=== PATIENT | female | born 1970 | race Caucasian/White ===

== ENCOUNTER 2022-02-27 09:13 | Emergency (ER) | payer OTHER ==
[~2022-02-27] VITALS: Ht 162.5 cm; Wt 96.9 kg
[~2022-02-27 09:13] MED LIST: OMEP20TA33 PO
[2022-02-27] MEDS ORDERED: FAMOTIDINE 20 MG (PEPCID) TABLET PO STA (09:31)
--- NOTE | 2022-02-27 09:31 | ED Abdominal Pain ---
General Stated Complaint: RT SIDE PAIN, GALL BLADDER Source of Information: Patient Exam Limitations: No Limitations History of Present Illness Date Seen by Provider: February 27, 2022 Time Seen by Provider: 09:16 Initial Comments 51-year-old female with no pertinent past medical history coming in due to right upper quadrant pain. Been off and on for the past 4 days, worse in the past day. Associated with nonbloody nonbilious vomiting x4 in the past 4 days with 1 episode in the past 24 hours. A couple episodes of nonbloody diarrhea. She had a light salad yesterday was fine, couple hours later tried a sugar cookie and the pain got worse. Is worse when she lays back, and better in the " position". Has not tried any medicines for it as of yet. She had COVID in 2019, and that is when this started intermittently happening. She followed up with the surgeon and I will, had CT, ultrasound, and HIDA scan. She says in 2019 the HIDA scan was close to the point of them needing to take the gallbladder out. She is otherwise denying any other acute complaints. Allergies and Home Medications Allergies Coded Allergies: No Known Drug Allergies (Unverified , 02/27/22) Patient Home Medication List Home Medication List Reviewed: Yes Hydrocodone Bit/Acetaminophen (HYDROcodone/APAP 5 MG/325 MG TAB) 1 Tab Tab, 1 TAB PO Q6H Prescribed by: VANNA MANDUJANO on 02/27/22 1043 Ondansetron (Ondansetron Odt) 4 Mg Tab.rapdis, 4 MG PO Q6H PRN for NAUSEA/VOMITING-1ST LINE Prescribed by: VANNA MANDUJANO on 02/27/22 1042 Review of Systems Review of Systems Constitutional: No chills, No fever EENTM: No Blurred Vision Respiratory: Denies Cough, Denies Shortness of Air Cardiovascular: Denies Chest Pain Gastrointestinal: Abdomen Distended, Diarrhea, Nausea, Vomiting Genitourinary: No Symptoms Reported Musculoskeletal: no symptoms reported Skin: no symptoms reported Psychiatric/Neurological: No Symptoms Reported Endocrine: No Symptoms Reported Hematologic/Lymphatic: No Symptoms Reported All Other Systems Reviewed Negative Unless Noted: Yes Past Bgeovfg-Rooetk-Xhqlyq Hx Patient Social History Tobacco Use?: No Substance use?: No Alcohol Use?: Yes Alcohol Frequency: Once in a while Past Medical History Surgeries: Yes Hysterectomy Physical Exam Vital Signs Vital Signs - First Documented 02/27/22 09:18 Temp 36.2 Pulse 69 Resp 16 B/P (MAP) 161/75 (103) Capillary Refill : Height/Weight/BMI Height: '" Weight: lbs. oz. kg; BMI Method: General Appearance: WD/WN, no apparent distress HEENT: PERRL/EOMI, normal ENT inspection, pharynx normal Neck: non-tender, full range of motion, supple, normal inspection Respiratory: chest non-tender, lungs clear, normal breath sounds, no respiratory distress, no accessory muscle use Cardiovascular: regular rate, rhythm, no edema, no murmur Gastrointestinal: normal bowel sounds, soft; No distended, No guarding, No rebound; tenderness, other (positive Hensley) Extremities: normal range of motion, non-tender, normal inspection, no pedal edema, no calf tenderness, normal capillary refill Back: normal inspection, no CVA tenderness Neurologic/Psychiatric: no motor/sensory deficits, alert, normal mood/affect Skin: normal color, warm/dry Lymphatic: no adenopathy Progress/Results/Core Measures Results/Orders Lab Results Laboratory Tests Test 02/27/22 09:33 02/27/22 09:40 Range/Units White Blood Count 5.3 4.3-11.0 10^3/uL Red Blood Count 4.58 3.80-5.11 10^6/uL Hemoglobin 14.0 11.5-16.0 g/dL Hematocrit 40 35-52 % Mean Corpuscular Volume 87 80-99 fL Mean Corpuscular Hemoglobin 31 25-34 pg Mean Corpuscular Hemoglobin Concent 35 32-36 g/dL Red Cell Distribution Width 12.0 10.0-14.5 % Platelet Count 206 130-400 10^3/uL Mean Platelet Volume 11.3 9.0-12.2 fL Immature Granulocyte % (Auto) 0 % Neutrophils (%) (Auto) 53 42-75 % Lymphocytes (%) (Auto) 33 12-44 % Monocytes (%) (Auto) 9 0-12 % Eosinophils (%) (Auto) 5 0-10 % Basophils (%) (Auto) 1 0-10 % Neutrophils # (Auto) 2.8 1.8-7.8 10^3/uL Lymphocytes # (Auto) 1.8 1.0-4.0 10^3/uL Monocytes # (Auto) 0.5 0.0-1.0 10^3/uL Eosinophils # (Auto) 0.2 0.0-0.3 10^3/uL Basophils # (Auto) 0.1 0.0-0.1 10^3/uL Immature Granulocyte # (Auto) 0.0 0.0-0.1 10^3/uL Sodium Level 142 135-145 MMOL/L Potassium Level 3.7 3.6-5.0 MMOL/L Chloride Level 106 98-107 MMOL/L Carbon Dioxide Level 26 21-32 MMOL/L Anion Gap 10 5-14 MMOL/L Blood Urea Nitrogen 13 7-18 MG/DL Creatinine 0.67 0.60-1.30 MG/DL Estimat Glomerular Filtration Rate 106 BUN/Creatinine Ratio 19 Glucose Level 93 70-105 MG/DL Calcium Level 8.9 8.5-10.1 MG/DL Corrected Calcium 8.8 8.5-10.1 MG/DL Total Bilirubin 0.5 0.1-1.0 MG/DL Aspartate Amino Transf (AST/SGOT) 17 5-34 U/L Alanine Aminotransferase (ALT/SGPT) 21 0-55 U/L Alkaline Phosphatase 89 40-136 U/L Troponin I < 0.30 <0.30 NG/ML Total Protein 7.0 6.4-8.2 GM/DL Albumin 4.1 3.2-4.5 GM/DL Lipase 25 8-78 U/L Urine Color YELLOW Urine Clarity CLEAR Urine pH 7.5 5-9 Urine Specific Williamson 1.015 L 1.016-1.022 Urine Protein NEGATIVE NEGATIVE Urine Glucose (UA) NEGATIVE NEGATIVE Urine Ketones NEGATIVE NEGATIVE Urine Nitrite NEGATIVE NEGATIVE Urine Bilirubin NEGATIVE NEGATIVE Urine Urobilinogen 0.2 < = 1.0 MG/DL Urine Leukocyte Esterase NEGATIVE NEGATIVE Urine RBC (Auto) NEGATIVE NEGATIVE Urine RBC RARE /HPF Urine WBC 0-2 /HPF Urine Squamous Epithelial Cells 10-25 H /HPF Urine Crystals NONE /LPF Urine Bacteria NEGATIVE /HPF Urine Casts NONE /LPF Urine Mucus NEGATIVE /LPF Urine Culture Indicated NO My Orders Orders - VANNA MANDUJANO MD Comprehensive Metabolic Panel (02/27/22 09:31) Lipase (02/27/22 09:31) Ua Culture If Indicated (02/27/22 09:31) Ed Iv/Invasive Line Start (02/27/22 09:31) Cbc With Automated Diff (02/27/22 09:31) Ekg Tracing (02/27/22 09:31) Troponin I Fs (02/27/22 09:31) Ondansetron Injection (Zofran Injectio (02/27/22 09:45) Lidocaine 2% Viscous 15 Ml (Xylocaine Vi (02/27/22 09:45) Famotidine Tablet (Pepcid Tablet) (02/27/22 09:31) Antacid Suspension (Mylanta Suspension (02/27/22 09:45) Ketorolac Injection (Toradol Injection) (02/27/22 09:45) Us Gallbladder [id number] (02/27/22 09:36) Medications Given in ED Current Medications Medications Dose Ordered Sig/Rashmi Route Start Time Stop Time Status Last Admin Dose Admin Al Hydrox/Mg Hydrox/Simethicone 30 ml ONCE ONCE PO 02/27/22 09:45 02/27/22 09:46 DC 02/27/22 09:58 30 ML Ketorolac Tromethamine 15 mg ONCE ONCE IVP 02/27/22 09:45 02/27/22 09:46 DC 02/27/22 09:55 15 MG Lidocaine HCl 15 ml ONCE ONCE PO 02/27/22 09:45 02/27/22 09:46 DC 02/27/22 09:58 15 ML Ondansetron HCl 4 mg ONCE ONCE IVP 02/27/22 09:45 02/27/22 09:46 DC 02/27/22 09:56 4 MG Vital Signs/I&O 02/27/22 09:18 Temp 36.2 Pulse 69 Resp 16 B/P (MAP) 161/75 (103) Progress Progress Note : Progress Note 51-year-old female with above history coming in due to right upper quadrant pain. ABCs were intact and vitals were stable on presentation. Physical exam with some right upper quadrant tenderness but no signs of peritonitis. EKG obta ined to further evaluate if this could be an atypical ACS, and there are no acute changes. IV was placed and basic labs obtained including normal white blood cell count, normal LFTs, normal lipase, normal troponin. Right upper quadrant ultrasound with normal gallbladder. Repeat abdominal exam reassuring. She got IV Zofran, Toradol, and a GI cocktail and is feeling a lot better. I discussed with the patient it still possible she might need an outpatient HIDA scan. She has a surgeon in [place], [place] that she follows with that she says she will call. I believe she is stable for discharge with outpatient follow-up. She was sent home with strict return precautions. Initial ECG Impression Date: February 27, 2022 Initial ECG Impression Time: 10:10 Initial ECG Rate: 53 Initial ECG Rhythm: S.Jaswant Comment Narrow QRS, normal axis, no significant ST changes or T wave abnormalities Diagnostic Imaging Diagonstic Imaging: Ultrasound (RUQ) Comments NAME: VANESSA ENRIQUE [facility] REC#: [id number] PT STATUS: REG ER : 1970 PHYSICIAN: VANNA MANDUJANO MD ADMIT DATE: 02/27/22/ER FS Draft Date of Exam:02/27/22 US GALLBLADDER [id number] EXAMINATION: US Abdomen limited. TECHNIQUE: Multiple real-time grayscale images were obtained over the right upper quadrant in various projections. HISTORY: RUQ pain COMPARISON: None available. FINDINGS: Pancreas: The visualized portions of the pancreas are normal. Liver: The liver is normal in echogenicity and contour. No focal lesions are seen. The portal vein is patent with hepatopetal flow. Gallbladder and biliary tree: Gallbladder is normal without wall thickening, pericholecystic fluid, or sonographic Hensley sign. There is no biliary ductal dilation. The common duct measures 0.4 cm. Right kidney: The right kidney is normal without hydronephrosis. Aorta and IVC: The visualized aorta and inferior vena cava are normal. Fluid: No ascites is seen. IMPRESSION: 1. Unremarkable right upper quadrant ultrasound. Dictated on workstation # [id number] Dict: 02/27/22 1033 Trans: 02/27/[address] [place] [id number] Interpreted by: HARLAN SHARP DO Electronically signed by: Departure Impression Primary Impression: RUQ pain Disposition: 01 HOME, SELF-CARE Condition: Stable Departure-Patient Inst. Decision time for Depature: 10:40 Referrals: NO,LOCAL PHYSICIAN (PCP) Primary Care Physician TERRY HUOSE DO Patient Instructions: Gallbladder Diet, HIDA Scan (DC) Add. Discharge Instructions: Call the physician that you know in [place] and try to get an appointment scheduled with soon as possible to be evaluated and see if they believe it would be a good idea to take out your gallbladder. I sent pain medicine for the next couple days to get you through as well as nausea medicine. I would start with liquids for diet that are low in fat and see how you are doing with pain. Dr. House is one of the surgeons in [place] and his number is in this paperwork. Scripts Ondansetron (Ondansetron Odt) 4 Mg Tab.rapdis 4 MG PO Q6H PRN for NAUSEA/VOMITING-1ST LINE for 5 Days, #20 TAB Prov: VANNA MANDUJANO MD 02/27/22 Hydrocodone Bit/Acetaminophen (HYDROcodone/APAP 5 MG/325 MG TAB) 1 Tab Tab 1 TAB PO Q6H for Pain for 3 Days, #12 TAB 0 Refills Prov: VANNA MANDUJANO MD 02/27/22 Work/School Note: Work Release Form Date Seen in the Emergency Department: February 27, 2022 Return to Work: March 01, 2022 Restrictions: No Restrictions VANNA MANDUJANO MD February 27, 2022 09:31
[2022-02-27] MEDS ORDERED: ANTACID SUSP 30 ML UDC (MYLANTA) PO ONE (09:45)
[2022-02-27] MEDS ORDERED: KETOROLAC 30 MG/ML VIAL IVP ONE (09:45)
[2022-02-27] MEDS ORDERED: LIDOCAINE 2% VISCOUS 15 ML UDC PO ONE (09:45)
[2022-02-27] MEDS ORDERED: ONDANSETRON 4 MG/2 ML (SDV) Z0FRAN IVP ONE (09:45)
[2022-02-27 09:50] LABS: BILIRUBIN,URINE NEGATIVE (NEGATIVE); CLARITY,URINE CLEAR; COLOR,URINE YELLOW; GLUCOSE, URINE (UA) NEGATIVE (NEGATIVE); KETONES,URINE NEGATIVE (NEGATIVE); LEUKOCYTE ESTERASE ,URINE NEGATIVE (NEGATIVE); NITRITE,URINE NEGATIVE (NEGATIVE); PH,URINE 7.5 (5-9); PROTEIN,URINE NEGATIVE (NEGATIVE)
[2022-02-27 10:01] LABS: BASOPHILS # (AUTO) 0.1 10^3/uL (0.0-0.1); BASOPHILS % (AUTO) 1 % (0-10); EOSINOPHILS # (AUTO) 0.2 10^3/uL (0.0-0.3); EOSINOPHILS % (AUTO) 5 % (0-10); HEMATOCRIT 40 % (35-52); LYMPHOCYTES # (AUTO) 1.8 10^3/uL (1.0-4.0); LYMPHOCYTES % (AUTO) 33 % (12-44); MEAN CORPUSCULAR HEMOGLOBIN 31 pg (25-34); MEAN CORPUSCULAR HGB CONC 35 g/dL (32-36); MEAN CORPUSCULAR VOLUME 87 fL (80-99); MEAN PLATELET VOLUME 11.3 fL (9.0-12.2); MONOCYTES # (AUTO) 0.5 10^3/uL (0.0-1.0); MONOCYTES % (AUTO) 9 % (0-12); NEUTROPHILS # (AUTO) 2.8 10^3/uL (1.8-7.8); NEUTROPHILS % (AUTO) 53 % (42-75); PLATELET COUNT 206 10^3/uL (130-400); WHITE BLOOD COUNT 5.3 10^3/uL (4.3-11.0)
[2022-02-27 10:05] LABS: BACTERIA,URINE NEGATIVE /HPF; RBC,URINE RARE /HPF; WBC,URINE 0-2 /HPF
[2022-02-27 10:15] LABS: ALBUMIN 4.1 GM/DL (3.2-4.5); BILIRUBIN,TOTAL 0.5 MG/DL (0.1-1.0); CALCIUM 8.9 MG/DL (8.5-10.1); CREATININE SERUM 0.67 MG/DL (0.60-1.30); POTASSIUM 3.7 MMOL/L (3.6-5.0)
--- NOTE | 2022-02-27 10:38 | Diagnostic Imaging Report ---
EXAMINATION: US Abdomen limited. TECHNIQUE: Multiple real-time grayscale images were obtained over the right upper quadrant in various projections. HISTORY: RUQ pain COMPARISON: None available. FINDINGS: Pancreas: The visualized portions of the pancreas are normal. Liver: The liver is normal in echogenicity and contour. No focal lesions are seen. The portal vein is patent with hepatopetal flow. Gallbladder and biliary tree: Gallbladder is normal without wall thickening, pericholecystic fluid, or sonographic Hensley sign. There is no biliary ductal dilation. The common duct measures 0.4 cm. Right kidney: The right kidney is normal without hydronephrosis. Aorta and IVC: The visualized aorta and inferior vena cava are normal. Fluid: No ascites is seen. IMPRESSION: 1. Unremarkable right upper quadrant ultrasound. Dictated by: Dictated on workstation # [id number]
[2022-02-27] MEDS ORDERED: ONDA4TAB11 PO (10:42)
[2022-02-27] MEDS ORDERED: ACHD5005 PO (10:42)
[2022-02-27 10:51] VITALS: BP 122/66
== END 2022-02-27 10:51 | disposition home or self-care (01) ==
LOC: ER FS 09:17
DX: R10.11 Right upper quadrant pain (principal); Z86.16 Personal history of COVID-19
CPT/HCPCS: 36415; 76705; 80053; 81000; 83690; 84484; 85025; 93005

== ENCOUNTER → 2022-04-20 | Outpatient (CLI) | payer OTHER ==
[~2022-04-20] MED LIST changes: +ACHD5005 PO; +ONDA4TAB11 PO
[2022-04-20 04:53] LABS: BASOPHILS % (AUTO) 1 % (0-10); EOSINOPHILS # (AUTO) 0.3 10^3/uL (0.0-0.3); EOSINOPHILS % (AUTO) 6 % (0-10); HEMATOCRIT 40 % (35-52); HEMOGLOBIN 13.8 g/dL (11.5-16.0); LYMPHOCYTES # (AUTO) 1.8 10^3/uL (1.0-4.0); LYMPHOCYTES % (AUTO) 32 % (12-44); MEAN CORPUSCULAR HEMOGLOBIN 30 pg (25-34); MEAN CORPUSCULAR HGB CONC 35 g/dL (32-36); MEAN CORPUSCULAR VOLUME 87 fL (80-99); MEAN PLATELET VOLUME 11.4 fL (9.0-12.2); MONOCYTES # (AUTO) 0.5 10^3/uL (0.0-1.0); MONOCYTES % (AUTO) 9 % (0-12); NEUTROPHILS # (AUTO) 2.9 10^3/uL (1.8-7.8); NEUTROPHILS % (AUTO) 52 % (42-75); PLATELET COUNT 199 10^3/uL (130-400); WHITE BLOOD COUNT 5.6 10^3/uL (4.3-11.0)
[2022-04-20 05:52] LABS: POTASSIUM 3.8 MMOL/L (3.6-5.0)
[2022-04-20 05:53] LABS: ALBUMIN 4.2 GM/DL (3.2-4.5); BILIRUBIN,TOTAL 0.6 MG/DL (0.1-1.0); CALCIUM 9.2 MG/DL (8.5-10.1); CREATININE SERUM 0.81 MG/DL (0.60-1.30); TOTAL PROTEIN 7.1 GM/DL (6.4-8.2)
[2022-04-20 15:50] LABS: FREE T4 (FREE THYROXINE) 0.94 NG/DL (0.70-1.48)
== END ==
LOC: ER FS 04:43
PROVIDERS: ATTEND Registered Nurse Emergency
DX: Z00.00 Encounter for general adult medical examination without abnormal findings (principal); Z12.31 Encounter for screening mammogram for malignant neoplasm of breast; R10.11 Right upper quadrant pain; R53.83 Other fatigue
CPT/HCPCS: 36415; 80053; 80061; 84439; 84443; 85025